=== PATIENT | female | born 1975 | race Caucasian/White ===

== ENCOUNTER 2017-03-21 11:59 | Emergency (ER) | payer OTHER, BC ==
[~2017-03-21] VITALS: Ht 162.6 cm; Wt 60.6 kg
[2017-03-21 11:59] VITALS: TEMP 36.9; Ht 162.6 cm; Wt 60.6 kg
[2017-03-21] MEDS ORDERED: SODIUM CHLORIDE 0.9% 1000ML 1,000 ML IV STA (12:24)
[2017-03-21] MEDS ORDERED: FLUO20CA20 PO (12:44)
[2017-03-21 12:45] LABS: BASO % 0.2 %; BASO ABS # 0.02 K/uL (0-0.2); EOS % 0.4 %; EOS ABS # 0.04 K/uL (0-0.5); HEMATOCRIT 40.9 % (37-47); HEMOGLOBIN 14.3 g/dL (12.0-16.0); IG# 0.03 K/uL (0.00-0.02); LYMPH % 14.4 %; LYMPH ABS # 1.35 K/uL (1.2-3.4); MEAN CELL VOLUME 97.8 fL (80-100); MEAN CORPUSCULAR HEMOGLOBIN 34.2 pg (25-34); MEAN PLATELET VOLUME 9.2 fL (7.4-10.4); MONO % 9.6 %; NEUT % 75.1 %; NEUT ABS # 7.01 K/uL (1.4-6.5); PLATELET COUNT 230 K/uL (130-400); RED CELL DISTRIBUTION WIDTH CV 12.7 % (11.5-14.5); RED CELL DISTRIBUTION WIDTH SD 45.3 fL (36.4-46.3); WHITE BLOOD COUNT 9.35 K/uL (4.8-10.8)
[2017-03-21 13:02] LABS: ALBUMIN 4.2 gm/dl (3.4-5.0); CALCIUM 8.7 mg/dl (8.5-10.1); CREATININE 0.74 mg/dl (0.60-1.20); POTASSIUM 3.4 mmol/L (3.5-5.1)
[2017-03-21 13:03] VITALS: O2SAT 100
[2017-03-21 13:05] LABS: TOTAL PROTEIN 7.2 gm/dl (6.4-8.2)
[2017-03-21] MEDS ORDERED: ONDANSETRON INJ 2 MG/ML 2 ML VIAL IV STA (13:16)
[2017-03-21] MEDS ORDERED: LORAZEPAM 2 MG/ML 1 ML VIAL IV STA (13:16)
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
[2017-03-21] MEDS ORDERED: OPTIRAY 320 IV PRN (15:00)
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
[2017-03-21 16:18] VITALS: BP 129/89; PULSE 67; O2SAT 99
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
== END 2017-03-21 16:19 | disposition home or self-care (01) ==
LOC: EDBD 11:59 → C.EDC 12:00
DX: S06.0X0A Concussion without loss of consciousness, initial encounter (principal); S60.221A Contusion of right hand, initial encounter; V49.50XA Passenger injured in collision with unspecified motor vehicles in traffic accident, initial encounter; R40.2412 Glasgow coma scale score 13-15, at arrival to emergency department; M54.9 Dorsalgia, unspecified

== ENCOUNTER 2021-06-02 18:51 | Observation (INO) ==
[2021-06-02] MEDS ORDERED: SODIUM CHLORIDE 0.9% 1000ML 1,000 ML IV STA (19:09)
[2021-06-02] MEDS ORDERED: ONDANSETRON INJ 2 MG/ML 2 ML VIAL IV STA (19:18)
[2021-06-02] MEDS ORDERED: LORazepam 2 MG/1 ML VIAL IV STA (19:18)
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
[2021-06-02 19:31] LABS: Basophils # (auto) 0.01 K/uL (0-0.2); Basophils % (auto) 0.2 %; Eosinophils # (auto) 0.04 K/uL (0-0.5); Eosinophils % (auto) 0.6 %; Hematocrit (blood only) 36.3 % (37-47); Hemoglobin 12.9 g/dL (12.0-16.0); Immature Granulocytes # (auto) 0.01 K/uL (0.00-0.02); Immature Granulocytes % (auto) 0.2 %; Lymphocytes # (auto) 1.89 K/uL (1.2-3.4); Mean Corpuscular Hemoglobin 35.1 pg (25-34); Mean Corpuscular Hgb Conc 35.5 g/dL (32-36); Mean Corpuscular Volume 98.9 fL (80-100); Monocytes # (auto) 0.62 K/uL (0.11-0.59); Monocytes % (auto) 9.5 %; Neutrophils # (auto) 3.95 K/uL (1.4-6.5); Neutrophils % (auto) 60.5 %; Platelet Count 226 K/uL (130-400); RDW Coefficient of Variation 11.7 % (11.5-14.5); RDW Standard Deviation 41.7 fL (36.4-46.3); Red Blood Count 3.67 M/uL (4.2-5.4); White Blood Count 6.52 K/uL (4.8-10.8)
[2021-06-02 19:53] LABS: Troponin I < 0.03 ng/ml (0-0.04)
[2021-06-02 19:55] LABS: Alanine Aminotransferase 14 U/L (7-52); Albumin Globulin Ratio 1.8 (0.9-2); Albumin Level 4.3 gm/dl (3.4-5.0); Alkaline Phosphatase 14 U/L (34-104); Anion Gap 12 (3-11); Aspartate Aminotransferase 21 U/L (13-39); BUN Creatinine Ratio 12.5 (10-20); Bilirubin,Total 1.8 mg/dl (0.2-1.0); Blood Urea Nitrogen 9 mg/dl (6-23); Calcium 8.5 mg/dl (8.5-10.1); Carbon Dioxide 21 mmol/L (21-32); Chloride 92 mmol/L (98-107); Creatinine Clr Calc Pharmacy 83.4 ml/min; Est GFR (African American) 115.6 ml/min; Est GFR (Non-African American) 99.7 ml/min; Globulin 2.4 gm/dl (2.5-4.0); Glucose 129 mg/dl (70-99(Fasting)); Lipase 38 U/L (11-82); Sodium 125 mmol/L (136-145); Total Protein 6.7 gm/dl (6.0-8.3)
[2021-06-02] MEDS ORDERED: POTASSIUM CHLORIDE / WTR 10 MEQ/100 ML PLCT IV ONE (20:04)
[2021-06-02] MEDS ORDERED: SODIUM CHLORIDE 0.9% 500 ML IV SCH (20:15)
--- NOTE | 2021-06-02 20:17 | XRay Report ---
XR chest 1V portable CLINICAL HISTORY: Atypical chest pain TECHNIQUE: Single frontal radiograph of the chest was obtained. Comparison: Comparison is made to chest one view 09/28/2019 FINDINGS: No lines and tubes are seen. The cardiomediastinal silhouette is normal. The lungs are clear. No evid ence of pleural effusion or pneumothorax. IMPRESSION: No acute chest disease. ACT 112: Negative or not required by law. Electronically signed by: Colin Carr M.D. 06/02/2021 8:16 PM
[2021-06-02] MEDS ORDERED: POTASSIUM CHLORIDE PWD 20 MEQ PACK PO STA (20:41)
[2021-06-02 21:53] LABS: Appearance Urine Clear (Clear); Bilirubin Urine Negative (Negative); Blood Urine Negative (Negative); Color Urine Yellow; Glucose Urine UA Negative (Negative); Ketones Urine Negative (Negative); Leukocyte Esterase Urine Negative (Negative); Nitrite Urine Negative (Negative); Protein Urine Negative (Negative); Specific Gravity Urine 1.002 (1.000-1.030); Urobilinogen Urine Negative (Negative); pH Urine 7.5 (4.5-7.5)
--- NOTE | 2021-06-02 21:53 | History & Physical Report ---
Date of Service June 02, 2021 Assessment & Plan (1) Acute hyponatremia: Plan: Possibly chronic ? Possible alcohol abuse contributory (Patient noted to be hyponatremic during prior [facility] lab draws.) Situational hypertension ADD, at baseline mood disorder, although suboptimal, patient denies suicidality Hypokalemia secondary to decreased p.o. intake Hyperglycemia rule out DM Medical telemetry Careful correction of sodium Hyponatremia work-up May need Nephrology consultation TANYA S, DT precautions Replace electrolytes Check hemoglobin A1c DVT prophylaxis. Lovenox subcu Full code Text document was generated using [employer] voice recognition software. It may contain grammatical or spelling errors. Kindly contact undersigned for clarification of any documentation item in question. History of Present Illness Chief Complaint: Weakness, transient left arm pain Primary Care Provider: Divya Savage MD History obtained from patient and records. Medical history significant for ADD, mood disorder, possible alcohol abuse. Patient noted transient left upper extremity pain along with symptoms of anxiety, nausea, weakness, dizziness symptoms. No headache, chest pain, no S OB, no abdominal pain, no diarrhea. Admits to some stress at home. Denies suicidality. Denies LUE trauma history. Patient was to start preparation today for scheduled outpatient screening colonoscopy tomorrow a.m. Patient admits that alcohol intake can sometimes be excessive secondary to stress. Denies history of alcohol withdrawal seizures. Last EtOH intake was yesterday. She had 2 beers. Patient consulted ER for evaluation. 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 [employer] Allergies Allergy/AdvReac Type Severity Reaction Status Date / Time No Known Allergies Allergy Verified 06/02/21 20:29 Home Medications Medication Instructions Recorded Confirmed Type biotin 1 mg capsule 1 mg PO DAILY 06/02/21 06/02/21 History methylphenidate HCl 27 mg 27 mg PO QAM 06/02/21 06/02/21 History tablet,extended release 24 hr multivitamin 1 tab PO DAILY 06/02/21 06/02/21 History Past Med/Surg History Medical History (Updated 06/02/21 @ 21:21 by Beni Marin MD) No pertinent past medical history Social History Smoking Status: Former smoker Tobacco Type: Cigarettes Hx Alcohol Use: Yes Alcohol type: beer Hx Substance Use: No Preferred Language: Afghan Current Living Situation: Alone Feels Safe at Home: Yes Review of Systems Review of Systems: As per HPI, all 10 systems reviewed, all other ROS negative Physical Exam Physical Exam: GENERAL: Slightly uncomfortable, pleasant, no respiratory distress SKIN: Normal color, warm HEENT: [place] palpebral conjunctivae, no ptosis, dry buccal mucosa NECK : Supple, no tenderness CHEST : CTA, no tenderness HEART : RRR, no obvious murmurs ABDOMEN: Some distention, nontender EXTREMITIES : No LE swelling/tenderness, no other conspicuous deformities noted NEUROLOGIC : Coherent, no facial asymmetry, no other gross focality Results & Data Results & Data ([facility]) Vital Signs (Past 12 Hours) Vital Signs Temp Pulse Resp BP Pulse Ox 06/02/21 19:44 66 16 98 06/02/21 18:57 36.5 C 80 18 169/94 H 100 Laboratory Results Laboratory Results WBC 6.52 K/uL (4.8-10.8) 06/02/21 19:24 RBC 3.67 M/uL (4.2-5.4) L 06/02/21 19:24 Hgb 12.9 g/dL (12.0-16.0) 06/02/21 19:24 Hct 36.3 % (37-47) L 06/02/21 19:24 MCV 98.9 fL (80-100) 06/02/21 19:24 MCH 35.1 pg (25-34) H 06/02/21 19:24 MCHC 35.5 g/dL (32-36) 06/02/21 19:24 RDW Std Deviation 41.7 fL (36.4-46.3) 06/02/21 19:24 RDW Coeff of Noam 11.7 % (11.5-14.5) 06/02/21 19:24 Plt Count 226 K/uL (130-400) 06/02/21 19:24 MPV 9.0 fL (7.4-10.4) 06/02/21 19:24 Immature Gran % (Auto) 0.2 % 06/02/21 19:24 Neut % (Auto) 60.5 % 06/02/21 19:24 Lymph % (Auto) 29.0 % 06/02/21 19:24 [place] % (Auto) 9.5 % 06/02/21 19:24 Eos % (Auto) 0.6 % 06/02/21 19:24 Baso % (Auto) 0.2 % 06/02/21 19:24 Neut # (Auto) 3.95 K/uL (1.4-6.5) 06/02/21 19:24 Lymph # (Auto) 1.89 K/uL (1.2-3.4) 06/02/21 19:24 [place] # (Auto) 0.62 K/uL (0.11-0.59) H 06/02/21 19:24 Eos # (Auto) 0.04 K/uL (0-0.5) 06/02/21 19:24 Baso # (Auto) 0.01 K/uL (0-0.2) 06/02/21 19:24 Immature Gran # (Auto) 0.01 K/uL (0.00-0.02) 06/02/21 19:24 Sodium 125 mmol/L (136-145) L 06/02/21 19:24 Potassium 3.0 mmol/L (3.5-5.1) L 06/02/21 19:24 Chloride 92 mmol/L (98-107) L 06/02/21 19:24 Carbon Dioxide 21 mmol/L (21-32) 06/02/21 19:24 Anion Gap 12 (3-11) H 06/02/21 19:24 BUN 9 mg/dl (6-23) 06/02/21 19:24 Creatinine 0.72 mg/dl (0.6-1.2) 06/02/21 19:24 Est Cr Clr Drug Dosing 83.4 ml/min 06/02/21 19:24 Est GFR ( Amer) 115.6 ml/min 06/02/21 19:24 Est GFR (Non-Af Amer) 99.7 ml/min 06/02/21 19:24 BUN/Creatinine Ratio 12.5 (10-20) 06/02/21 19:24 Glucose 129 mg/dl (70-99(Fasting)) H 06/02/21 19:24 Osmolality 265 mOsm/kg (280-300) L 06/02/21 19:24 Calcium 8.5 mg/dl (8.5-10.1) 06/02/21 19:24 Magnesium 1.3 mg/dl (1.7-2.4) L 06/02/21 19:24 Total Bilirubin 1.8 mg/dl (0.2-1.0) H 06/02/21 19:24 AST 21 U/L (13-39) 06/02/21 19:24 ALT 14 U/L (7-52) 06/02/21 19:24 Alkaline Phosphatase 14 U/L (34-104) L 06/02/21 19:24 Troponin I < 0.03 ng/ml (0-0.04) 06/02/21 19:24 Total Protein 6.7 gm/dl (6.0-8.3) 06/02/21 19:24 Albumin 4.3 gm/dl (3.4-5.0) 06/02/21 19:24 Globulin 2.4 gm/dl (2.5-4.0) L 06/02/21 19:24 Albumin/Globulin Ratio 1.8 (0.9-2) 06/02/21 19:24 Lipase 38 U/L (11-82) 06/02/21 19:24 TSH 2.846 uIu/ml (0.300-4.500) 06/02/21 19:24 Impressions Chest X-Ray 06/02/21 19:09 XR chest 1V portable CLINICAL HISTORY: Atypical chest pain TECHNIQUE: Single frontal radiograph of the chest was obtained. Comparison: Comparison is made to chest one view 09/28/2019 FINDINGS: No lines and tubes are seen. The cardiomediastinal silhouette is normal. The lungs are clear. No evidence of pleural effusion or pneumothorax. IMPRESSION: No acute chest disease. ACT 112: Negative or not required by law. Electronically signed by: Colin Carr M.D. 06/02/2021 8:16 PM Diagnostic Findings EKG as per my interpretation: Rate 65, NSR, normal axis, no ischemia
[2021-06-02] MEDS ORDERED: MAGNESIUM SULFATE / D5W 1 GM/100 ML BAG IV STA (21:57)
[2021-06-02] MEDS ORDERED: THIAMINE HCL 100 MG in SYRINGE 9 ML IV ONE (22:15)
[2021-06-02] MEDS ORDERED: oxyCODONE HCL IR 5 MG TAB (IMMEDIATE RELEASE) PO PRN (23:03)
[2021-06-02] MEDS ORDERED: ACETAMINOPHEN 325 MG TAB PO PRN (23:03)
[2021-06-02] MEDS ORDERED: ATIVAN IV ALCOHOL WITHDRAWL IV PRN (23:03)
[2021-06-02] MEDS ORDERED: LORazepam 2 MG/1 ML VIAL IV PRN ×4 (23:03)
[2021-06-02] MEDS ORDERED: PROMETHAZINE HCL 12.5 MG in SODIUM CHLORIDE 0.9% 50 ML IV PRN (23:03)
[2021-06-02] MEDS: THIAMINE HCL 100 MG TAB PO SCH (23:54)
[2021-06-02] MEDS: FOLIC ACID 1 MG TAB PO SCH (23:54)
[2021-06-02] MEDS: MAGNESIUM SULFATE / D5W 1 GM/100 ML BAG IV SCH (23:55)
[2021-06-03] MEDS ORDERED: POTASSIUM CHLORIDE CRTAB 20 MEQ TABCR PO STA (00:17)
[2021-06-03] MEDS: MAGNESIUM SULFATE / D5W 1 GM/100 ML BAG IV SCH ×2 (02:15→04:18)
[2021-06-03 06:49] LABS: Basophils # (auto) 0.01 K/uL (0-0.2); Basophils % (auto) 0.2 %; Eosinophils # (auto) 0.05 K/uL (0-0.5); Eosinophils % (auto) 1.2 %; Hematocrit (blood only) 39.8 % (37-47); Hemoglobin 13.8 g/dL (12.0-16.0); Immature Granulocytes # (auto) 0.01 K/uL (0.00-0.02); Immature Granulocytes % (auto) 0.2 %; Lymphocytes # (auto) 1.73 K/uL (1.2-3.4); Lymphocytes % (auto) 40.2 %; Mean Corpuscular Hemoglobin 34.4 pg (25-34); Mean Corpuscular Hgb Conc 34.7 g/dL (32-36); Mean Corpuscular Volume 99.3 fL (80-100); Mean Platelet Volume 9.1 fL (7.4-10.4); Monocytes # (auto) 0.47 K/uL (0.11-0.59); Monocytes % (auto) 10.9 %; Neutrophils # (auto) 2.03 K/uL (1.4-6.5); Neutrophils % (auto) 47.3 %; Platelet Count 251 K/uL (130-400); RDW Coefficient of Variation 11.8 % (11.5-14.5); RDW Standard Deviation 43.1 fL (36.4-46.3); Red Blood Count 4.01 M/uL (4.2-5.4)
[2021-06-03 07:27] LABS: BUN Creatinine Ratio 9.1 (10-20); Calcium 8.6 mg/dl (8.5-10.1); Est GFR (African American) 121.9 ml/min; Est GFR (Non-African American) 105.2 ml/min; Magnesium 2.6 mg/dl (1.7-2.4)
[2021-06-03 07:33] LABS: Estimated Average Glucose 97 mg/dl
[2021-06-03] MEDS: FOLIC ACID 1 MG TAB PO SCH (08:28)
[2021-06-03] MEDS: THIAMINE HCL 100 MG TAB PO SCH (08:29)
[2021-06-03] MEDS ORDERED: MULTIVITAMIN TAB PO SCH ×2 (09:00)
[2021-06-03] MEDS ORDERED: ENOXAPARIN INJ 40 MG/0.4 ML SYR SQ SCH (09:00)
--- NOTE | 2021-06-03 12:18 | Electrocardiogram Report ---
Test Reason : Blood Pressure : / mmHG Vent. Rate : 067 BPM Atrial Rate : 067 BPM P-R Int : 196 ms QRS Dur : 084 ms QT Int : 414 ms P-R-T Axes : 018 066 051 degrees QTc Int : 437 ms Normal sinus rhythm Normal ECG When compared with ECG of 19-JUN-2008 00:58, No significant change was found Confirmed by Wil Frost ([id number]) on 06/03/2021 12:18:22 PM Referred By: REFERRED SELF Confirmed By:Wil Frost
--- NOTE | 2021-06-03 14:38 | Hospitalist Progress Note ---
Date of Service June 03, 2021 Assessment & Plan (1) Acute hyponatremia: Plan: Present on admission with anxiety and lightheadedness Possible related to poor oral intake due to preparation for colonoscopy vs alcohol abuse Sodium low in the past 129 Na on admission 125, Sodium 136 today IVF discontinued Check BMP in 1 week Alcohol abuse Denies any history of alcohol withdrawal Counseling on alcohol cessation On thiamine and folic acid Left arm pain Denies any pain Resolved ADD Continue Methylphenidate Anxiety Mood disorder Follow up with PCP for possible starting on maintenance med Hypokalemia Potassium 3 on admission K replaced K 4 today Continue monitor BP Hyperglycemia Hba1c 5 today Continue monitor DVT prophylaxis. Lovenox subcu Full code Admission and Anticipated Discharge Date Admission Date: June 02, 2021 Subjective Pt was seen and examined for follow up of Hyponatremia Lying in bed with no acute distress watching TV She said that she feels fine She is asking to be discharged today because her dog is scheduled for surgery tomorrow She said that she is under a lot of stress lately This morning she had 2 episodes of diarrhea, she said that she took 4 tabs of colace yesterday for the colonoscopy today She said that she is not having any pain in her left arm Denies any chest pain, palpitation, dizziness and SOB Review of Systems Review of Systems: All systems reviewed & are unremarkable except as noted in Subjective Physical Exam Physical Exam: General- No acute distress Head- atraumatic Eyes- PERRL, EOMI, ENT- oropharynx clear Neck- supple, no JVD Lungs- clear to auscultation Heart- regular rhythm; no murmur Abdomen- normal bowel sounds, soft, nontender Extremities- no calf tenderness Neuro- alert, oriented x 3; PERRL, EOMI; no facial palsy; no dysarthria Skin- warm & dry Results & Data Results & Data ([facility]) Vital Signs (Past 12 Hours) Vital Signs Temp Pulse Pulse Pulse Resp BP Pulse Ox 06/03/21 11:00 36.8 C 66 12 120/70 100 06/03/21 07:35 36.7 C 65 12 120/74 99 06/03/21 07:17 85 06/03/21 03:36 36.5 C 61 16 113/73 99
== END 2021-06-03 15:54 | disposition home or self-care (01) ==
LOC: ED 18:51 → 2N 21:55 → INTOOBSV 21:55 → 2N 22:49
DX: Z20.822 Contact with and (suspected) exposure to COVID-19; I10 Essential (primary) hypertension; E87.1 Hypo-osmolality and hyponatremia; Z87.891 Personal history of nicotine dependence; E78.6 Lipoprotein deficiency; F06.30 Mood disorder due to known physiological condition, unspecified; F90.9 Attention-deficit hyperactivity disorder, unspecified type